=== PATIENT | female | born 1945 | race Caucasian/White ===

== ENCOUNTER 2017-12-23 07:10 | Inpatient (IN) | payer OTHER ==
[2017-12-07 09:47] VITALS: BMI 27.3
[2017-12-23] MEDS ORDERED: oxyCODONE HCL 10 MG SUSTAINED ACTING TABLET PO STA (08:14)
[2017-12-23] MEDS ORDERED: GABAPENTIN 300 MG CAPSULE (FP) PO STA (08:14)
[2017-12-23] MEDS ORDERED: CEFAZOLIN 2 GM in DEXTROSE 5%-WATER - 100 ML IVPB ONE (08:14)
[2017-12-23] MEDS ORDERED: TRANEXAMIC ACID 1000 MG/10 ML VIAL IVPUSH ONE (08:20)
[2017-12-23] MEDS ORDERED: BUPIVACAINE HCL/PF (5 MG/ML) 30 ML VIAL IJ ONE (09:34)
[2017-12-23] MEDS ORDERED: MIDAZOLAM HCL 2 MG/2 ML SINGLE DOSE VIAL ONE (09:34)
[2017-12-23] MEDS ORDERED: SODIUM CHLORIDE 0.9% P/F 10 ML VIAL IJ ONE (09:34)
[2017-12-23] MEDS ORDERED: BUPIVACAINE LIPOSOME/PF (EXPAREL) 266 MG/20 ML VIAL ONE (09:34)
[2017-12-23] MEDS ORDERED: BUPIVACAINE HCL/PF 0.5% (5MG/ML) 10 ML VIAL ONE (09:36)
[2017-12-23] MEDS ORDERED: SUCCINYLCHOLINE CHLORIDE 200 MG/10 ML VIAL ONE (09:37)
[2017-12-23] MEDS ORDERED: ePHEDrine SULFATE 50 MG/1 ML AMPULE ONE (09:37)
[2017-12-23] MEDS ORDERED: PROPOFOL 20 ML ONE ×4 (09:38)
[2017-12-23] MEDS ORDERED: ceFAZolin SODIUM 1 GM VIAL ONE ×2 (12:18→13:49)
[2017-12-23] MEDS ORDERED: TRANEXAMIC ACID 1000 MG/10 ML VIAL ONE ×2 (12:18→13:49)
[2017-12-23] MEDS ORDERED: oxyCODONE HCL 5 MG TABLET PO PRN (13:54)
[2017-12-23] MEDS ORDERED: PROMETHAZINE HCL 25 MG/1 ML VIAL IVPUSH PRN (13:54)
[2017-12-23] MEDS ORDERED: ONDANSETRON 4 MG/2 ML VIAL IVPUSH PRN (14:02)
[2017-12-23] MEDS ORDERED: MAG HYDROX/AL HYDROX/SIMETH 30 ML UNIT-DOSE CUP PO PRN (14:02)
[2017-12-23] MEDS ORDERED: MAGNESIUM HYDROX 2400MG/30ML ORAL SUSPENSION 30 ML CUP PO PRN (14:02)
[2017-12-23] MEDS ORDERED: BENZOIN/ALOE VERA/STORAX/TOLU 58 ML BOTTLE ONE (14:06)
--- NOTE | 2017-12-23 14:08 | PN ---
Progress Note (short form) - Note Progress Note: 72F s/p RIGHT total knee replacement POD #0. -Pain control: per anaesthesia team. -DVT PPx: - Mechanical: ASA EC 81mg PO BID x 6 weeks. - Mechanical: JOSHUA's, SCD's. -Incentive spirometry. -PT/OT/Rehab, OOB. -WBAT RLE. -Lucia-op antibiotics: Ancef. -f/u drain output. -f/u AM labs tomorrow. -Diet as tolerated. -Care per medical hospitalist team. -Discharge planning: f/u 7-10 days after discharge at [facility] [place] office; call for appointment; . -Will follow. Angus Perez MD (Orthopaedic Surgery).
--- NOTE | 2017-12-23 14:14 | OP ---
Operative Note - Note: Operative Date: 12/23/17 Pre-Operative Diagnosis: Right knee DJD Operation: Right total knee replacement Implants: [place] Triathlon. Femur - 3. Tibia - 3. Patella - 27mm. Poly - 9mm, PS Post-Operative Diagnosis: Same as Pre-op Surgeon: Angus Perez Roll Forger: Barrera Perez Anesthesiologist/ETL CONSULTANT: Mamadou Mahoney Anesthesia: Spinal Specimens Removed: Bone, soft tissue Drains & Tubes with Location: 1 x deep HemoVac Fluid Volume Replaced (mls): 800 Operative Report Dictated: Yes
[2017-12-23] MEDS ORDERED: LACTATED RINGERS SOLUTION 1,000 ML IV SCH (14:15)
[2017-12-23] MEDS ORDERED: HYDROmorphone HCL/PF 1 MG/ML AMP ONE (14:41)
[2017-12-23] MEDS ORDERED: ONDANSETRON 4 MG/2 ML VIAL ONE (15:25)
[2017-12-23] MEDS ORDERED: ACETAMINOPHEN 325 MG TABLET (FP) ONE (15:34)
[2017-12-23] MEDS: ACETAMINOPHEN 325 MG TABLET (FP) PO SCH ×2 (15:35→20:28)
[2017-12-23] MEDS ORDERED: oxyCODONE HCL 5 MG TABLET ONE (16:12)
[2017-12-23] MEDS: oxyCODONE HCL 5 MG TABLET PO PRN (18:29)
[2017-12-23] MEDS: CEFAZOLIN 1 GM/D5W 1 GRAM/50 ML BAG IVPB SCH (19:30)
--- NOTE | 2017-12-23 20:57 | OP ---
DATE OF OPERATION: 12/23/2017 SURGEON: Angus Perez MD PIANO TEACHER: Barrera Perez MD; LOYDA Pascal PREOPERATIVE DIAGNOSES: Fixed valgus deformity, fixed flexion deformity, tricompartment osteoarthritis, right knee. POSTOPERATIVE DIAGNOSES: Fixed valgus deformity, fixed flexion deformity, tricompartment osteoarthritis, right knee. OPERATION PERFORMED: Right posterior stabilized cemented total knee arthroplasty ([place] Triathlon). ANESTHESIA: Conscious sedation with spinal anesthesia. ANTIBIOTICS GIVEN: Kefzol 2 g, vancomycin 1 g, Kefzol 1 g given at the time of release of the tourniquet. OPERATION DETAILS: Patient correctly identified. Imaging was available for intraoperative and preoperative evaluation. Timeout was called. The right lower extremity was prepped and free draped in the routine manner with Betadine scrub solution, wiped off with alcohol, DuraPrep applied, a free drape applied. With the knee flexed, a midline incision was utilized. The dissection was taken down to the quadriceps mechanism. The quadriceps tendon was split longitudinally to just shy of 1 cm of the suprapatellar margin. An angulated incision was made around the parapatellar tissues skirting around the patella to the medial aspect of the tibial tubercle. The subperiosteal layer was lifted off the bone sharply with sharp knife dissection. Severe osteoarthritis encountered. A completely shattered lateral meniscus noted. The ricarda was on the lateral tibial side. Using the [employer] jig instrumentation, the tibia was cut to neutral, that is, 90 degrees to the shaft of the tibia. The patella was cut along [place]'s line, that is, from quadriceps tendon to patellar ligament, and the femur was cut 4 degrees of valgus and 2-mm proximalization of the joint line performed. This was because of the fixed flexion deformity. The appropriate jig system was then applied and the cuts were made in the femur to receive a size 3 Triathlon posterior stabilized implant. The tibia measured a size 3. The polyethylene was a 3 x 9 mm component and the polyethylene patellar component was a size 27 mm implant. All cuts were made. The flexion extension gaps were even at 9 mm. The limb was brought into anatomical and mechanical axis alignment and the patellar tracking was well maintained in the trialing components with no need for any lateral release, a negative thumb twst test enjoyed. The bone bed was thoroughly lavaged. After all the jig cuts were made, after repeating lavaging of the interstices, cementing was in 1 stage, femur, patella, and tibia. All extraneous cement was removed after curing of cement. The 9-mm definitive polyethylene liner inserted. The limb was placed through a range of movement as follows: Flexion, extension 0 to 120 degrees stability in the coronal plane, both at 90 degrees and at 0, as well as sagittal plane, both at 90 degrees and 0 was stable. A negative thumb test test noted. Patellar tracking was normal. Closure: Quadriceps tendon and parapatellar tendon with 1 Vicryl subcutaneous, 1 and 2-0 Vicryl; skin: 3-0 Monocryl with Steri-Strips. Drainage: A 1/8-inch Hemovac x1 ; this inadvertently got pulled out at the end of the procedure. Antibiotics to be given postoperatively with DVT prophylaxis. The patient will be nursed in the postoperative routine holding area. MD KARELY Silva/[id number] MTDD
[2017-12-23] MEDS: oxyCODONE HCL 10 MG SUSTAINED ACTING TABLET PO SCH (21:26)
[2017-12-23] MEDS: SENNOSIDES/DOCUSATE COMBO (SENNA PLUS) TABLET (UD) PO SCH (21:30)
[2017-12-23] MEDS: PREGABALIN 50 MG CAPSULE PO SCH (21:30)
[2017-12-23] MEDS: ASPIRIN 81 MG CHEWABLE TABLETS PO SCH (21:31)
[2017-12-24] MEDS: oxyCODONE HCL 5 MG TABLET PO PRN ×4 (01:09→16:09)
[2017-12-24] MEDS: ACETAMINOPHEN 325 MG TABLET (FP) PO SCH ×4 (02:06→21:19)
[2017-12-24] MEDS: CEFAZOLIN 1 GM/D5W 1 GRAM/50 ML BAG IVPB SCH (03:05)
[2017-12-24] MEDS: PREGABALIN 50 MG CAPSULE PO SCH ×3 (05:20→21:19)
--- NOTE | 2017-12-24 07:39 | CONSULT ---
Consultation: REQUESTING PROVIDER:Dr Perez CONSULT REQUEST: We have been asked to medically evaluate this patient for medical management. HISTORY OF PRESENT ILLNESS: Patient is a 72-year-old female, with a past medical history of migraine headaches, hyperlipidemia, and osteoarthritis. Patient underwent an elective right total knee replacement on December 23 2017, Dr Perez, spinal anesthesia. She reports feeling well, reports minimal pain to the right lower extremity, patient denies any paresthesias extremity. REVIEW OF SYSTEMS: CONSTITUTIONAL: Absent: fever, chills, diaphoresis, generalized weakness, malaise, loss of appetite, weight change HEENT: Absent: rhinorrhea, nasal congestion, throat pain, throat swelling, difficulty swallowing, mouth swelling, ear pain, eye pain, visual changes CARDIOVASCULAR: Absent: chest pain, syncope, palpitations, irregular heart rate, lightheadedness , peripheral edema RESPIRATORY: Absent: cough, shortness of breath, dyspnea with exertion, orthopnea, wheezing, stridor, hemoptysis GASTROINTESTINAL: Absent: abdominal pain, abdominal distension, nausea, vomiting, diarrhea, constipation, melena, hematochezia GENITOURINARY: Absent: dysuria, frequency, urgency, hesitancy, hematuria, flank pain, genital pain MUSCULOSKELETAL: Present: right knee pain Absent: myalgia, arthralgia, joint swelling, back pain, neck pain SKIN: Absent: rash, itching, pallor HEMATOLOGIC/IMMUNOLOGIC: Absent: easy bleeding, easy bruising, lymphadenopathy, frequent infections ENDOCRINE: Absent: unexplained weight gain, unexplained weight loss, heat intolerance, cold intolerance NEUROLOGIC: Absent: headache, focal weakness or paresthesias, dizziness, unsteady gait, seizure, mental status changes, bladder or bowel incontinence PSYCHIATRIC: Absent: anxiety, depression, suicidal or homicidal ideation, hallucinations. PHYSICAL EXAMINATION Vital Signs - 24 hr 12/23/17 12/23/17 12/23/17 08:08 15:00 15:05 Temperature 97.8 F 98.8 F Pulse Rate 66 78 67 Respiratory 18 16 18 Rate Blood Pressure 137/83 129/72 129/74 O2 Sat by Pulse 97 100 Oximetry (%) 12/23/17 12/23/17 12/23/17 15:10 15:15 15:20 Temperature Pulse Rate 70 67 58 L Respiratory 19 17 14 Rate Blood Pressure 131/66 141/85 145/70 O2 Sat by Pulse 100 100 100 Oximetry (%) 12/23/17 12/23/17 12/23/17 15:35 15:50 16:05 Temperature Pulse Rate 57 L 53 L 76 Respiratory 16 17 15 Rate Blood Pressure 145/65 157/67 151/92 O2 Sat by Pulse 96 96 96 Oximetry (%) 12/23/17 12/23/17 12/23/17 16:20 16:35 16:45 Temperature 98.8 F Pulse Rate 50 L 63 63 Respiratory 14 12 12 Rate Blood Pressure 141/91 150/74 150/74 O2 Sat by Pulse 98 100 Oximetry (%) 12/23/17 12/23/17 12/23/17 17:21 19:27 22:11 Temperature 98.9 F 99.1 F 99.8 F H Pulse Rate 60 69 66 Respiratory 20 20 17 Rate Blood Pressure 144/68 167/69 129/47 O2 Sat by Pulse 100 98 97 Oximetry (%) 12/24/17 06:30 Temperature 99.6 F Pulse Rate 67 Respiratory 18 Rate Blood Pressure 149/57 O2 Sat by Pulse 97 Oximetry (%) GENERAL: Awake, alert, and fully oriented, in no acute distress. HEAD: Normal with no signs of trauma. EYES: Pupils equal, round and reactive to light, extraocular movements intact, sclera anicteric, conjunctiva clear. No lid lag. EARS, NOSE, THROAT: Ears normal, nares patent, oropharynx clear without exudates. Moist mucous membranes. NECK: Normal range of motion, supple without lymphadenopathy, JVD, or masses. LUNGS: Breath sounds equal, clear to auscultation bilaterally. No wheezes, and no crackles. No accessory muscle use. HEART: Regular rate and rhythm, normal S1 and S2 without murmur, rub or gallop. ABDOMEN: Soft, nontender, not distended, normoactive bowel sounds, no guarding, no rebound, no masses. No hepatomegaly or splenomegaly. MUSCULOSKELETAL: Normal range of motion at all joints. No bony deformities or tenderness. No CVA tenderness. UPPER EXTREMITIES: 2+ pulses, warm, well-perfused. No cyanosis. No clubbing. Cap refill <2 seconds. No peripheral edema. LOWER EXTREMITIES: 2+ pulses, warm, well-perfused. No calf tenderness. No peripheral edema. rIGHT LOWER EXTREMITY: SCDs/T ED, less than 3 second capillary refill +3 radial pulse. Hemovac drain intact dressing CDI. NEUROLOGICAL: Cranial nerves II-XII intact. Normal speech. Normal gait. PSYCHIATRIC: Cooperative. Good eye contact. Appropriate mood and affect. SKIN: Warm, dry, normal turgor, no rashes or lesions noted. Active Medications Generic Name Dose Route Start Last Admin Trade Name Freq PRN Reason Stop Dose Admin Acetaminophen 650 mg 12/23/17 15:00 12/24/17 02:06 Tylenol - PO 12/26/17 14:59 650 mg Q6H BRIAN Administration Al Hydroxide/Mg Hydroxide 30 ml 12/23/17 14:02 Mylanta Oral Suspension - PO Q4H PRN DYSPEPSIA Aspirin 81 mg 12/23/17 22:00 12/23/17 21:31 Asa - PO 81 mg BID BRIAN Administration Magnesium Hydroxide 30 ml 12/23/17 14:02 Milk Of Magnesia - PO PRN PRN CONSTIPATION Ondansetron HCl 4 mg 12/23/17 14:02 12/23/17 15:23 Zofran Injection IVPUSH 4 mg Q6H PRN Administration NAUSEA Oxycodone HCl 5 mg 12/23/17 13:54 Roxicodone - PO Q3H PRN PAIN LEVEL 1-5 Oxycodone HCl 10 mg 12/23/17 13:54 12/24/17 05:21 Roxicodone - PO 10 mg Q3H PRN Administration PAIN LEVEL 6-10 Oxycodone HCl 10 mg 12/23/17 22:00 12/23/17 21:26 Oxycontin - PO 12/26/17 13:55 10 mg BID BRIAN Administration Pantoprazole Sodium 40 mg 12/24/17 10:00 Protonix - PO DAILY [facility] Pregabalin 50 mg 12/23/17 22:00 12/24/17 05:20 Lyrica - PO 50 mg TID BRIAN Administration Promethazine HCl 12.5 mg 12/23/17 13:54 Phenergan Injection - IVPUSH Q6H PRN NAUSEA-FOR RESCUE AFTER 15 MIN Senna/Docusate Sodium 2 tablet 12/23/17 22:00 12/23/17 21:30 Pericolace - PO 2 tablet BID [facility] Administration Solifenacin 5 mg 12/24/17 10:00 Vesicare - PO DAILY [facility] ASSESSMENT/PLAN: 1) MS s/p right total knee replacement, POD #1 - When necessary pain medication - Monitor hemoglobin, drain output, repeat hemoglobin this a.m. stable - Physical therapy as per the orthopedist Dispo: We will continue to follow the patient. Thank you for this consultative opportunity. Visit type - Emergency Visit Emergency Visit: No - New Patient This patient is new to me today: Yes Date on this admission: 12/24/17 - Critical Care Critical Care patient: No
--- NOTE | 2017-12-24 07:59 | PN ---
Progress Note (short form) - Note Progress Note: 72yo F s/p Rt total knee replacement POD 1, seen at bedside sitting up in chair. Pt states that she has been having a lot of pain and difficulty with getting around. Pt states that she has been taking her pain medications regularly. Pt denies fever, chills, n/v. Pt urinating well. Pt states she would like to go to rehab as she lives alone and will be difficult caring for herself. Last Vital Signs Temp Pulse Resp BP Pulse Ox 99.6 F 67 18 149/57 97 12/24/17 06:30 12/24/17 06:30 12/24/17 06:30 12/24/17 06:30 12/24/17 06:30 PE: Gen: A&O x3 Resp: breathing comfortably Ext: Right knee has charito wrap in place dressing is clean no obvious discharge or odor. Full ROM foot, no weakness or numbness. Problem List - Problems (1) S/P total knee replacement Assessment/Plan: Plan -continue pain medications -OOB/ambulate with PT -incentive spirometry -DVT ppx -social science manager for rehab placement Code(s): Z96.659 - PRESENCE OF UNSPECIFIED ARTIFICIAL KNEE JOINT
[2017-12-24 08:21] LABS: ANION GAP 9 MMOL/L (8-16); BLOOD UREA NITROGEN 8 mg/dl (7-18); CALCIUM 8.6 mg/dl (8.4-10.2); CHLORIDE 98 mmol/L (98-107); CO2 26 mmol/L (22-28); CREATININE 0.7 mg/dl (0.6-1.3); GLUCOSE,RANDOM 147 mg/dl (74-106); POTASSIUM 3.8 mmol/L (3.5-5.1); SODIUM 133 mmol/L (136-145)
[2017-12-24 08:26] LABS: HEMATOCRIT 39.4 % (32.4-45.2); HEMOGLOBIN 13.4 GM/dl (10.7-15.3); MCH 32.9 pg (25.7-33.7); MCHC 33.9 g/dl (32.0-36.0); MEAN CELL VOLUME 96.9 fl (80-96); PLATELET COUNT 230 K/MM3 (134-434); RBC 4.07 M/mm3 (3.60-5.2); RDW 13.2 % (11.6-15.6); WHITE BLOOD COUNT 12.6 K/mm3 (4.0-10.8)
--- NOTE | 2017-12-24 08:58 | PN ---
Progress Note, Physician Chief Complaint: day 1 s/p right knee arthroplasty - Current Medication List Current Medications: Active Medications Acetaminophen (Tylenol -) 650 mg PO Q6H [facility] Stop: 12/26/17 14:59 Last Admin: 12/24/17 08:54 Dose: 650 mg Al Hydroxide/Mg Hydroxide (Mylanta Oral Suspension -) 30 ml PO Q4H PRN PRN Reason: DYSPEPSIA Aspirin (Asa -) 81 mg PO BID [facility] Last Admin: 12/23/17 21:31 Dose: 81 mg Magnesium Hydroxide (Milk Of Magnesia -) 30 ml PO PRN PRN PRN Reason: CONSTIPATION Ondansetron HCl (Zofran Injection) 4 mg IVPUSH Q6H PRN PRN Reason: NAUSEA Last Admin: 12/23/17 15:23 Dose: 4 mg Oxycodone HCl (Roxicodone -) 5 mg PO Q3H PRN PRN Reason: PAIN LEVEL 1-5 Oxycodone HCl (Roxicodone -) 10 mg PO Q3H PRN PRN Reason: PAIN LEVEL 6-10 Last Admin: 12/24/17 08:55 Dose: 10 mg Oxycodone HCl (Oxycontin -) 10 mg PO BID [facility] Stop: 12/26/17 13:55 Last Admin: 12/23/17 21:26 Dose: 10 mg Pantoprazole Sodium (Protonix -) 40 mg PO DAILY [facility] Pregabalin (Lyrica -) 50 mg PO TID [facility] Last Admin: 12/24/17 05:20 Dose: 50 mg Senna/Docusate Sodium (Pericolace -) 2 tablet PO BID [facility] Last Admin: 12/23/17 21:30 Dose: 2 tablet Solifenacin (Vesicare -) 5 mg PO DAILY [facility] - Objective Vital Signs: Vital Signs Temperature 99.6 F 12/24/17 06:30 Pulse Rate 67 12/24/17 06:30 Respiratory Rate 18 12/24/17 08:20 Blood Pressure 149/57 12/24/17 06:30 O2 Sat by Pulse Oximetry (%) 97 12/24/17 08:20 Labs: CBC, BMP 12/24/17 07:15 12/24/17 07:15 Assessment/Plan had some pain when moving from bed to chair. PT to walk with pt today. No anesthetic issues/complications
[2017-12-24] MEDS ORDERED: PATIENT'S OWN MEDICATION (NON-FORMULARY) (Oxybutynin Chloride [Ditropan Xl] 10 MG) PO SCH (10:00)
[2017-12-24] MEDS: ASPIRIN 81 MG CHEWABLE TABLETS PO SCH ×2 (10:37→21:19)
[2017-12-24] MEDS: SENNOSIDES/DOCUSATE COMBO (SENNA PLUS) TABLET (UD) PO SCH ×2 (10:37→21:18)
[2017-12-24] MEDS: PANTOPRAZOLE 40 MG TABLET (FP) PO SCH (10:37)
[2017-12-24] MEDS: oxyCODONE HCL 10 MG SUSTAINED ACTING TABLET PO SCH ×2 (10:37→21:18)
[2017-12-24] MEDS: SOLIFENACIN SUCCINATE 5 MG TAB (FP) PO SCH (10:37)
[2017-12-25] MEDS: ACETAMINOPHEN 325 MG TABLET (FP) PO SCH ×2 (03:14→08:33)
[2017-12-25] MEDS: PREGABALIN 50 MG CAPSULE PO SCH (06:02)
[2017-12-25] MEDS: oxyCODONE HCL 5 MG TABLET PO PRN (06:39)
[2017-12-25 06:45] VITALS: BP 131/73; PULSE 92; TEMP 99.3
[2017-12-25 08:22] LABS: HEMATOCRIT 37.6 % (32.4-45.2); HEMOGLOBIN 12.8 GM/dl (10.7-15.3); MCH 32.9 pg (25.7-33.7); MCHC 34.1 g/dl (32.0-36.0); MEAN CELL VOLUME 96.7 fl (80-96); MEAN PLT VOLUME 8.9 fl (7.5-11.1); PLATELET COUNT 202 K/MM3 (134-434); RBC 3.89 M/mm3 (3.60-5.2); RDW 12.9 % (11.6-15.6); WHITE BLOOD COUNT 13.6 K/mm3 (4.0-10.8)
[2017-12-25] MEDS: PANTOPRAZOLE 40 MG TABLET (FP) PO SCH (10:01)
[2017-12-25] MEDS: ASPIRIN 81 MG CHEWABLE TABLETS PO SCH (10:01)
[2017-12-25] MEDS: SOLIFENACIN SUCCINATE 5 MG TAB (FP) PO SCH (10:02)
[2017-12-25] MEDS: oxyCODONE HCL 10 MG SUSTAINED ACTING TABLET PO SCH (10:02)
[2017-12-25] MEDS: SENNOSIDES/DOCUSATE COMBO (SENNA PLUS) TABLET (UD) PO SCH (10:02)
--- NOTE | 2017-12-25 10:14 | DS ---
Physical Exam: SUBJECTIVE: Patient seen and examined, reports feeling well, reports minimal pain to the right lower extremity, denies any paresthesia to the extremity, patient ambulated the hallway independently with a walker. OBJECTIVE: Patient is a 72-year-old female, with a past medical history of migraine headaches, hyperlipidemia, and osteoarthritis. Patient underwent an elective right total knee replacement on December 23, 2017, Dr Perez, spinal anesthesia. Vital Signs Temperature 99.3 F 12/25/17 06:00 Pulse Rate 92 H 12/25/17 06:00 Respiratory Rate 16 12/25/17 07:42 Blood Pressure 131/73 12/25/17 06:00 O2 Sat by Pulse Oximetry (%) 96 12/25/17 07:42 PHYSICAL EXAM GENERAL: The patient is awake, alert, and fully oriented, in no acute distress. HEAD: Normal with no signs of trauma. EYES: PERRL, extraocular movements intact, sclera anicteric, conjunctiva clear. ENT: Ears normal, nares patent, oropharynx clear without exudates, moist mucous membranes. NECK: Trachea midline, full range of motion, supple. LUNGS: Breath sounds equal, clear to auscultation bilaterally, no wheezes, no crackles, no accessory muscle use. HEART: Regular rate and rhythm, S1, S2 without murmur, rub or gallop. ABDOMEN: Soft, nontender, nondistended, normoactive bowel sounds, no guarding, no rebound, no hepatosplenomegaly, no masses. EXTREMITIES: 2+ pulses, warm, well-perfused, no edema. RIGHT LOWER EXTREMITY: scd/tamia, less than 3 second capillary refill, +3 pedal pulse, dressing cdi NEUROLOGICAL: Cranial nerves II through XII grossly intact. Normal speech, gait not observed. PSYCH: Normal mood, normal affect. SKIN: Warm, dry, normal turgor, no rashes or lesions noted. LABS CBC,CMP WBC 13.6 K/mm3 (4.0-10.8) H 12/25/17 07:30 RBC 3.89 M/mm3 (3.60-5.2) 12/25/17 07:30 Hgb 12.8 GM/dl (10.7-15.3) 12/25/17 07:30 Hct 37.6 % (32.4-45.2) 09/07/18 07:30 MCV 96.7 fl (80-96) H 12/25/17 07:30 MCH 32.9 pg (25.7-33.7) 12/25/17 07:30 MCHC 34.1 g/dl (32.0-36.0) 12/25/17 07:30 RDW 12.9 % (11.6-15.6) 12/25/17 07:30 Plt Count 202 K/MM3 (134-434) 12/25/17 07:30 MPV 8.9 fl (7.5-11.1) 12/25/17 07:30 Sodium 133 mmol/L (136-145) L 12/24/17 07:15 Potassium 3.8 mmol/L (3.5-5.1) 12/24/17 07:15 Chloride 98 mmol/L (98-107) 12/24/17 07:15 Carbon Dioxide 26 mmol/L (22-28) 12/24/17 07:15 Anion Gap 9 MMOL/L (8-16) 12/24/17 07:15 BUN 8 mg/dl (7-18) 12/24/17 07:15 Creatinine 0.7 mg/dl (0.6-1.3) 12/24/17 07:15 Creat Clearance w eGFR > 60 (>60) 12/24/17 07:15 Random Glucose 147 mg/dl (74-106) H 12/24/17 07:15 Calcium 8.6 mg/dl (8.4-10.2) 12/24/17 07:15 HOSPITAL COURSE: Patient was admitted to the medical surgical floor after an elective right Total knee replace Patient ambulated in the hallway independently with physical therapy on postoperative day 1. Pain was controlled with both narcotic and nonnarcotic analgesics. Patient repeat hgb is stable as above. Patient to be discharged for short term rehab. Date of Admission:12/23/17 Date of Discharge: 12/25/17 Minutes to complete discharge: 45
--- NOTE | 2017-12-25 12:26 | PN ---
Progress Note (short form) - Note Progress Note: POD#2 R TKR Doing well Pain well controlled CVS Stable RESP Clear ABD Soft MSKELETAL Bandage dry No NVD No calf or subsartorian tenderness ASSESS Doing well PLAN Pain MX PT mobilize DVT Prophylaxis Baby aspirin D/C rehab see in office in 3 weeks.
--- NOTE | 2018-01-01 15:18 | PATH ---
Surgical Pathology Report Patient Name: KEMAL GÓMEZ Med. Rec. #: [id number] /Age/Gender: 1945 (Age: 72) / F Account: [id number] Location: [facility] MED-SURG Taken: 12/23/2017 Received: 12/23/2017 Reported: 01/01/2018 Physicians: Angus Perez M.D. Specimen(s) Received BONE RIGHT KNEE Clinical History Right knee osteoarthritis Final Diagnosis BONE, RIGHT KNEE, TOTAL KNEE REPLACEMENT: DEGENERATIVE JOINT DISEASE. Electronically Signed Yamileth Damon M.D. Gross Description Received in formalin labeled "bone right knee," is a 9.5 x 7.5 x 2.0 cm aggregate of multiple portions of bone and soft tissue. The tibial plateau measures 6.8 x 4.8 x 1.4 cm. There is a 1.6 cm greatest dimension area of eburnation present. The remaining articular surfaces are tolentino-yellow and focally granular. The underlying trabecular bone is yellow and hard. Scruff Worker sections are submitted in one cassette, following decalcification. /12/25/2017 [facility]12/25/2017
== END 2017-12-25 13:57 | DRG 470 ==
LOC: FM/S 07:10
PROVIDERS: ADMIT Orthopaedic Surgery Orthopaedic Surgery of the Spine; ATTEND Orthopaedic Surgery Orthopaedic Surgery of the Spine
PROC: 0SRC0J9 Replacement of Right Knee Joint with Synthetic Substitute, Cemented, Open Approach (ICD-10-PCS; principal; 2017-12-23 13:00)
DX: M17.11 Unilateral primary osteoarthritis, right knee (principal); E78.5 Hyperlipidemia, unspecified; G43.909 Migraine, unspecified, not intractable, without status migrainosus
CPT/HCPCS: 36415; 73560-TC-RT-FY; 80048; 85027; 88304-TC; 88311-TC; 94760; 97116-GP; 97162-GP

== ENCOUNTER 2019-02-02 05:54 | Inpatient (IN) | payer OTHER ==
[2019-01-17 11:54] VITALS: BMI 32.6
[2019-02-02] MEDS ORDERED: VANCOMYCIN 1,250 MG in DEXTROSE 5%-WATER - 250 ML IVPB ONE (06:43)
[2019-02-02] MEDS ORDERED: TRANEXAMIC ACID 1000 MG/10 ML VIAL IVPUSH ONE (06:43)
[2019-02-02] MEDS ORDERED: CEFAZOLIN 2 GM in DEXTROSE 5%-WATER - 50 ML IVPB ONE (06:43)
[2019-02-02] MEDS ORDERED: MIDAZOLAM HCL 2 MG/2 ML SINGLE DOSE VIAL ONE ×3 (07:06→10:02)
--- NOTE | 2019-02-02 07:23 | HP ---
History & Physical Update - History History: No Change - Physical Physical: No Change - Assessment Assessment: No Change - Plan Plan: No Change (no change since visit with PCP on 01/17/19)
[2019-02-02] MEDS ORDERED: VANCOMYCIN 1,000 MG VIAL (RESTRICTED TO ID ONLY) ONE (07:42)
[2019-02-02] MEDS ORDERED: SUCCINYLCHOLINE CHLORIDE 200 MG/10 ML SYRINGE ONE (07:47)
[2019-02-02] MEDS ORDERED: PROPOFOL 20 ML ONE ×2 (07:48)
[2019-02-02] MEDS ORDERED: BUPIVACAINE HCL/PF 0.5% (5MG/ML) 10 ML VIAL ONE (07:51)
[2019-02-02] MEDS ORDERED: BENZOIN TINCTURE SWABSTICK TP ONE (07:57)
[2019-02-02] MEDS ORDERED: EPHEDRINE SULFATE/0.9% NACL/PF 50 MG/10 ML SYRINGE NR ONE (08:32)
[2019-02-02] MEDS ORDERED: DEXAMETHASONE SOD PHOSPHATE 4 MG/1 ML VIAL ONE (08:38)
[2019-02-02] MEDS ORDERED: ONDANSETRON 4 MG/2 ML VIAL ONE ×2 (08:39→11:43)
[2019-02-02] MEDS ORDERED: ceFAZolin SODIUM 1 GM VIAL ONE (10:28)
[2019-02-02] MEDS ORDERED: TRANEXAMIC ACID 1000 MG/10 ML VIAL ONE (10:38)
[2019-02-02] MEDS ORDERED: MAG HYDROX/AL HYDROX/SIMETH 30 ML UNIT-DOSE CUP PO PRN (10:56)
[2019-02-02] MEDS ORDERED: MAGNESIUM HYDROX 2400MG/30ML ORAL SUSPENSION 30 ML CUP PO PRN (10:56)
[2019-02-02] MEDS ORDERED: ONDANSETRON 4 MG/2 ML VIAL IVPUSH PRN (10:56)
[2019-02-02] MEDS ORDERED: LACTATED RINGERS SOLUTION 1,000 ML IV SCH (11:00)
[2019-02-02] MEDS ORDERED: ACETAMINOPHEN 325 MG TABLET (FP) PO SCH (11:15)
--- NOTE | 2019-02-02 11:49 | PN ---
Progress Note (short form) - Note Progress Note: 73F s/p RIGHT total hip replacement POD #0. -Pain control: per anaesthesia team. -DVT PPx: -Chemical: ASA 81mg PO BID x 6 weeks. -Mechanical: JOSHUA's, SCD's. -Incentive spirometry q15 min. -PT/OT/Rehab, OOB. -WBAT RLE. -Post-op Ancef x 3 doses. -f/u post-op TOV: 8 hours max. -f/u AM labs. -Diet as tolerated. -Care per medical hospitalist team. -Discharge planning: f/u [facility] [place] [facility] 02/10/2019; call for appointment . -Will follow. Barrera Perez MD (Orthopaedic Surgery).
--- NOTE | 2019-02-02 11:51 | OP ---
Operative Note - Note: Operative Date: 02/02/19 Pre-Operative Diagnosis: Right hip DJD Operation: Right JANA Implants: [place]. Cup - [place]ident II-Triathlon 50mm, cluster. Poly - 36mm, neutral. Stem - Accolade II, #3, 127 deg NSA. Head - 36mm diameter, -2.5mm length Biolox/Delta Ceramic Post-Operative Diagnosis: Same as Pre-op Surgeon: Barrera Perez Baked And Graphite Inspector: Angus Perez Anesthesiologist/SENIOR MARKETING ANALYST: Justyn Chen Anesthesia: Spinal Specimens Removed: Right femoral head Estimated Blood Loss (mls): 250 Fluid Volume Replaced (mls): 1,800 (Crystalloid) Operative Report Dictated: Yes
[2019-02-02] MEDS ORDERED: CEFAZOLIN 1 GM/D5W 1 GM/50 ML BAG IVPB SCH ×2 (12:00→17:30)
[2019-02-02] MEDS ORDERED: oxyCODONE HCL 5 MG TABLET ONE ×2 (12:05→12:43)
[2019-02-02] MEDS ORDERED: PREGABALIN 50 MG CAPSULE ONE (12:06)
[2019-02-02] MEDS: PREGABALIN 50 MG CAPSULE PO SCH ×2 (12:50→22:44)
--- NOTE | 2019-02-02 14:15 | HP ---
CHIEF COMPLAINT: Right hip pain HISTORY OF PRESENT ILLNESS: 73 year-old female with a PMH significant for HLD, migraines, overactive bladder , and osteoarthritis s/p right total hip arthroplasty today with Dr. Perez. Recent Travel: No PAST MEDICAL HISTORY: Hyperlipidemia Osteoarthritis Migraines Overactive bladder PAST SURGICAL HISTORY: Right total knee replacement (Chris, 12/23/17) Left knee replacement 2016 Bilateral cataracts Appendectomy (child) Left rotator cuff repair Social History: Smoking: former, quit 1987 Alcohol: occasional Drugs: no Allergies No Known Allergies Allergy (Verified 01/17/19 11:46) HOME MEDICATIONS: Home Medications Medication Instructions Recorded Meloxicam 15 mg PO HS 12/07/17 Oxybutynin Chloride [Ditropan Xl] 10 mg PO DAILY 12/07/17 Pregabalin [Lyrica -] 50 mg PO TID 12/07/17 Simvastatin 20 mg PO HS 12/07/17 Acetaminophen [Tylenol .Regular 650 mg PO Q6H tablet 12/25/17 Strength -] oxyCODONE HCL [Roxicodone -] 10 mg PO Q6H PRN #28 tablet MDD 4 12/25/17 REVIEW OF SYSTEMS CONSTITUTIONAL: Absent: fever, chills, diaphoresis, generalized weakness, malaise, loss of appetite, weight change HEENT: Absent: rhinorrhea, nasal congestion, throat pain, throat swelling, difficulty swallowing, mouth swelling, ear pain, eye pain, visual changes CARDIOVASCULAR: Absent: chest pain, syncope, palpitations, irregular heart rate, lightheadedness , peripheral edema RESPIRATORY: Absent: cough, shortness of breath, dyspnea with exertion, orthopnea, wheezing, stridor, hemoptysis GASTROINTESTINAL: Absent: abdominal pain, abdominal distension, nausea, vomiting, diarrhea, constipation, melena, hematochezia GENITOURINARY: Absent: dysuria, frequency, urgency, hesitancy, hematuria, flank pain, genital pain MUSCULOSKELETAL: Absent: myalgia, arthralgia, joint swelling, back pain, neck pain SKIN: Absent: rash, itching, pallor HEMATOLOGIC/IMMUNOLOGIC: Absent: easy bleeding, easy bruising, lymphadenopathy, frequent infections ENDOCRINE: Absent: unexplained weight gain, unexplained weight loss, heat intolerance, cold intolerance NEUROLOGIC: Absent: headache, focal weakness or paresthesias, dizziness, unsteady gait, seizure, mental status changes, bladder or bowel incontinence PSYCHIATRIC: Absent: anxiety, depression, suicidal or homicidal ideation, hallucinations. PHYSICAL EXAMINATION Vital Signs - 24 hr 02/02/19 02/02/19 02/02/19 06:48 11:32 11:40 Temperature 98.5 F 97.5 F L Pulse Rate 56 L 72 68 Respiratory 18 16 18 Rate Blood Pressure 117/68 116/97 109/71 O2 Sat by Pulse 100 99 Oximetry (%) 02/02/19 02/02/19 02/02/19 11:45 11:50 12:05 Temperature 97.5 F L Pulse Rate 99 H 99 H 86 Respiratory 18 18 20 Rate Blood Pressure 106/79 106/79 115/68 O2 Sat by Pulse 98 98 98 Oximetry (%) 02/02/19 02/02/19 02/02/19 12:20 12:35 12:50 Temperature Pulse Rate 66 69 68 Respiratory 20 18 18 Rate Blood Pressure 128/46 L 106/64 108/64 O2 Sat by Pulse 96 96 96 Oximetry (%) GENERAL: Awake, alert, and fully oriented, in no acute distress. HEAD: Normal with no signs of trauma. EYES: Pupils equal, round and reactive to light, extraocular movements intact, sclera anicteric, conjunctiva clear. No lid lag. EARS, NOSE, THROAT: Ears normal, nares patent, oropharynx clear without exudates. Moist mucous membranes. NECK: Normal range of motion, supple without lymphadenopathy, JVD, or masses. LUNGS: Breath sounds equal, clear to auscultation bilaterally. No wheezes, and no crackles. No accessory muscle use. HEART: Regular rate and rhythm, normal S1 and S2 without murmur, rub or gallop. ABDOMEN: Soft, nontender, not distended, normoactive bowel sounds, no guarding, no rebound, no masses. No hepatomegaly or splenomegaly. MUSCULOSKELETAL: Normal range of motion at all joints. No bony deformities or tenderness. No CVA tenderness. UPPER EXTREMITIES: 2+ pulses, warm, well-perfused. No cyanosis. No clubbing. No peripheral edema. LOWER EXTREMITIES: 2+ pulses, warm, well-perfused. No calf tenderness. No peripheral edema. NEUROLOGICAL: Cranial nerves II-XII intact. Normal speech. Normal gait. PSYCHIATRIC: Cooperative. Good eye contact. Appropriate mood and affect. SKIN: Warm, dry, normal turgor, no rashes or lesions noted, normal capillary refill. Pre op Hgb 14.8 BUN 13 Cr 0.8 Intra op EBL 250cc Crystalloids 1,800 ccs Cefazolin 2g x 1, and 1g x 1 ASSESSMENT/PLAN: 73 year-old female with a PMH significant for HLD, migraines, overactive bladder , and osteoarthritis s/p right total hip arthroplasty today with Dr. Perez. Right total hip arthroplasty --POD #0 --perioperative antibiotics per surgery --pain management per surgery --ASA 81mg BID --protonix --bowel regimen --incentive spirometry Hyperlipidemia --continue statin Migraines --continue Lyrica Overactive bladder --continue Vesicare FEN Fluids: PO intake adequate Electrolytes: replete as indicated Nutrition: regular diet DVT prophylaxis: OOB, ambulation, SCDs, TEDs, ASA 81mg BID Physical therapy Dispo: continues to require inpatient care. Full code. Visit type - Emergency Visit Emergency Visit: No - New Patient This patient is new to me today: Yes Date on this admission: 02/03/19 - Critical Care Critical Care patient: No
[2019-02-02] MEDS ORDERED: oxyCODONE HCL 5 MG TABLET PO PRN (14:38)
[2019-02-02] MEDS: FERROUS SO4 325 MG TABLET (FP) PO SCH (17:20)
[2019-02-02] MEDS: CEFAZOLIN 1 GM/D5W 1 GM/50 ML BAG IVPB SCH ×2 (17:29→23:00)
[2019-02-02] MEDS: ACETAMINOPHEN 325 MG TABLET (FP) PO SCH (18:29)
[2019-02-02] MEDS ORDERED: VANCOMYCIN 1 GRAM (PRE-DOCKED) 1,000 MG/250 ML BAG IVPB ONE (20:30)
[2019-02-02] MEDS ORDERED: PATIENT'S OWN MEDICATION (NON-FORMULARY) (Simvastatin [Simvastatin] 20 MG) PO SCH (22:00)
[2019-02-02] MEDS: oxyCODONE HCL 5 MG TABLET PO PRN (22:01)
[2019-02-02] MEDS: ATORVASTATIN CA 10 MG TABLET (FP) PO SCH (22:44)
[2019-02-02] MEDS: SENNOSIDES/DOCUSATE COMBO (SENNA PLUS) TABLET (UD) PO SCH (22:44)
[2019-02-02] MEDS: ASPIRIN COATED 81 MG TABLET.EC PO SCH (22:44)
[2019-02-02] MEDS: ASCORBIC ACID 500 MG TABLET (FP) PO SCH (22:51)
[2019-02-03] MEDS: traMADol HCL 50 MG TABLET PO PRN ×3 (03:45→09:20)
--- NOTE | 2019-02-03 04:19 | PN ---
Physical Exam: SUBJECTIVE: Patient seen and examined oob to chair. OBJECTIVE: Vital Signs Period Temp Pulse Resp BP Sys/Solis Pulse Ox Last 24 Hr 97.5 F-99.9 F 56-105 16-20 101-128/46-97 94-100 GENERAL: Awake, alert, and fully oriented, in no acute distress. LUNGS: Breath sounds equal, clear to auscultation bilaterally. No wheezes, and no crackles. No accessory muscle use. HEART: Regular rate and rhythm, normal S1 and S2 ABDOMEN: Soft, nontender, not distended, normoactive bowel sounds, no guarding, no rebound, no masses. No hepatomegaly or splenomegaly. MUSCULOSKELETAL: Normal range of motion at all joints. No bony deformities or tenderness. No CVA tenderness. RIGHT LOWER EXTREMITY: right hip dressing c/d/i NEUROLOGICAL: Cranial nerves II-XII intact. Normal speech. Active Medications Generic Name Dose Route Start Last Admin Trade Name Freq PRN Reason Stop Dose Admin Acetaminophen 650 mg 02/02/19 18:00 02/02/19 18:29 Tylenol - PO 02/05/19 17:59 650 mg Q6H BRIAN Administration Al Hydroxide/Mg Hydroxide 30 ml 02/02/19 10:56 Mylanta Oral Suspension - PO Q4H PRN DYSPEPSIA Ascorbic Acid 500 mg 02/02/19 22:00 Vitamin C - PO BID BRIAN Aspirin 81 mg 02/02/19 22:00 Ecotrin - PO BID BRIAN Atorvastatin Calcium 10 mg 02/02/19 22:00 Lipitor - PO HS BRIAN Fentanyl 50 mcg 02/02/19 14:38 Sublimaze Injection - IVPUSH [id number] PRN PAIN-PACU ORDER X 4 DOSES ONLY Ferrous Sulfate 325 mg 02/02/19 17:30 02/02/19 17:20 Feosol - PO 325 mg BIDWM BRIAN Administration Lactated Ringer's 1,000 mls @ 100 mls/hr 02/02/19 11:00 Lactated Ringers Solution IV 02/03/19 06:00 ASDIR BRIAN Cefazolin Sodium 1 gm in 50 mls @ 100 mls/hr 02/02/19 17:00 02/02/19 23:00 Ancef 1 Gm Premixed Ivpb - IVPB 02/03/19 05:29 100 mls/hr Q6H BRIAN Administration Magnesium Hydroxide 30 ml 02/02/19 10:56 Milk Of Magnesia - PO PRN PRN CONSTIPATION Multivitamins/Minerals/Vitamin C 1 tab 02/03/19 10:00 Tab-A-Vit - PO DAILY [facility] Ondansetron HCl 4 mg 02/02/19 10:56 Zofran Injection IVPUSH Q6H PRN NAUSEA Oxycodone HCl 5 mg 02/02/19 14:38 Roxicodone - PO Q3H PRN PAIN LEVEL 4 - 6 Oxycodone HCl 10 mg 02/02/19 14:38 02/02/19 22:01 Roxicodone - PO 10 mg Q3H PRN Administration PAIN LEVEL 7 - 10 Pantoprazole Sodium 40 mg 02/03/19 10:00 Protonix - PO DAILY BRIAN Pregabalin 50 mg 02/02/19 14:00 02/02/19 12:50 Lyrica - PO 50 mg TID BRIAN Administration Senna/Docusate Sodium 2 tablet 02/02/19 22:00 Pericolace - PO BID BRIAN Solifenacin 5 mg 02/03/19 10:00 Vesicare - PO DAILY BRIAN Tramadol HCl 50 mg 02/02/19 14:38 Ultram - PO Q3H PRN PAIN LEVEL 1 - 3 ASSESSMENT/PLAN: 73 year-old female with a PMH significant for HLD, migraines, overactive bladder , and osteoarthritis s/p right total hip arthroplasty today with Dr. Perez. Right total hip arthroplasty --POD #1 --perioperative antibiotics per surgery --pain management per surgery --ASA 81mg BID --protonix --bowel regimen --incentive spirometry Hyperlipidemia --continue statin Migraines --continue Lyrica Overactive bladder --continue Vesicare FEN Fluids: PO intake adequate Electrolytes: replete as indicated Nutrition: regular diet DVT prophylaxis: OOB, ambulation, SCDs, TEDs, ASA 81mg BID Physical therapy Dispo: continues to require inpatient care. Full code. Visit type - Emergency Visit Emergency Visit: No - New Patient This patient is new to me today: No - Critical Care Critical Care patient: No
[2019-02-03] MEDS: oxyCODONE HCL 5 MG TABLET PO PRN ×4 (04:43→21:43)
[2019-02-03] MEDS: CEFAZOLIN 1 GM/D5W 1 GM/50 ML BAG IVPB SCH (04:51)
[2019-02-03] MEDS: PREGABALIN 50 MG CAPSULE PO SCH ×3 (05:56→21:43)
[2019-02-03] MEDS: ACETAMINOPHEN 325 MG TABLET (FP) PO SCH ×3 (06:00→12:00)
[2019-02-03 07:14] LABS: HEMATOCRIT 32.7 % (32.4-45.2); HEMOGLOBIN 11.3 GM/dl (10.7-15.3); MCH 33.1 pg (25.7-33.7); MCHC 34.5 g/dl (32.0-36.0); MEAN PLT VOLUME 8.2 fl (7.5-11.1); PLATELET COUNT 187 K/MM3 (134-434); RBC 3.41 M/mm3 (3.60-5.2); RDW 12.7 % (11.6-15.6); WHITE BLOOD COUNT 11.5 K/mm3 (4.0-10.8)
[2019-02-03 07:29] LABS: CALCIUM 8.2 mg/dl (8.5-10); CREATININE 0.7 mg/dl (0.55-1.3); MAGNESIUM 1.7 mg/dL (1.8-2.4); POTASSIUM 3.7 mmol/L (3.5-5.1)
[2019-02-03] MEDS ORDERED: MAGNESIUM OXIDE 400 MG TABLET (FP) PO ONE (07:41)
--- NOTE | 2019-02-03 07:47 | PN ---
Progress Note (short form) - Note Progress Note: POD #1 s/p R JANA Alert. C/o a lot of incisional pain --> right buttock radiating into her groin. States the buttock pain is new and the groin is chronic however feels the pain has increased s/p surgery. Difficulty sleeping last night secondary to pain. OOB to chair with assist. Voiding spontaneously. Denies n/v/f/c, CP, palpitations, SOB or FIGUEROA. Last Vital Signs Temp Pulse Resp BP Pulse Ox 99.8 F H 99 H 20 119/57 L 94 L 02/03/19 06:00 02/03/19 06:00 02/03/19 06:00 02/03/19 06:00 02/03/19 06:00 CBC, BMP 02/03/19 07:08 02/03/19 07:08 GEN: nad LE: Rt hip dressing c/d/i. SCDs bilat Neuro: GMNVI bilat Problem List - Problems (1) Status post total hip replacement, right Assessment/Plan: Pain most likely associated with sciatic nerve irritation. -Anasthesia to address pain management issues -Breakdown Person Consulted for possible REHAB pending PT eval - Pain control. -DVT PPx: -Chemical: ASA 81 mg po BID x 6 weeks -Mechanical: JOSHUA's, SCD's -Incentive Spirometry. -PT/OT/Rehab, OOB. -WBAT RLE. -Care per medical hospitalist team. -Discharge planning: f/u [facility] [place] office school bus monitor for appointment: Code(s): Z96.641 - PRESENCE OF RIGHT ARTIFICIAL HIP JOINT (2) Osteoarthritis of right hip Code(s): M16.11 - UNILATERAL PRIMARY OSTEOARTHRITIS, RIGHT HIP
[2019-02-03] MEDS: FERROUS SO4 325 MG TABLET (FP) PO SCH (08:05)
[2019-02-03] MEDS ORDERED: KETOROLAC TROMETHAMINE 15 MG/ML VIAL IVPUSH PRN (08:31)
[2019-02-03] MEDS: ASPIRIN COATED 81 MG TABLET.EC PO SCH ×2 (09:16→21:42)
[2019-02-03] MEDS: PANTOPRAZOLE 40 MG TABLET (FP) PO SCH (09:19)
[2019-02-03] MEDS: SENNOSIDES/DOCUSATE COMBO (SENNA PLUS) TABLET (UD) PO SCH ×2 (09:19→21:43)
[2019-02-03] MEDS: SOLIFENACIN SUCCINATE 5 MG TAB PO SCH (09:20)
[2019-02-03] MEDS: ASCORBIC ACID 500 MG TABLET (FP) PO SCH ×2 (09:20→21:43)
[2019-02-03] MEDS: MULTIVITAMINS (DAILY MVI) TABLET (FP) PO SCH (09:20)
[2019-02-03] MEDS ORDERED: PATIENT'S OWN MEDICATION (NON-FORMULARY) (Oxybutynin Chloride [Ditropan Xl] 10 MG) PO SCH (10:00)
--- NOTE | 2019-02-03 11:06 | PN ---
Progress Note (short form) - Note Progress Note: POD 1 s/p R hip arthroplasty under spinal and paravertebral block. Patient c/o incisional pain, tolerable with addition of Toradol IV in additional to oxycodone prn. Patient actively participating in physical therapy. Reassurance given and patient encouraged to ask for both toradol and oxycodone po.
[2019-02-03] MEDS: ATORVASTATIN CA 10 MG TABLET (FP) PO SCH (21:43)
[2019-02-03] MEDS ORDERED: ASPIRIN 325 MG TABLET PO SCH (22:00)
[2019-02-04] MEDS: ACETAMINOPHEN 325 MG TABLET (FP) PO SCH ×2 (06:39)
[2019-02-04] MEDS: PREGABALIN 50 MG CAPSULE PO SCH (06:41)
[2019-02-04] MEDS: traMADol HCL 50 MG TABLET PO PRN (06:41)
[2019-02-04 07:47] LABS: HEMOGLOBIN 10.5 GM/dl (10.7-15.3); MCH 32.5 pg (25.7-33.7); MCHC 33.8 g/dl (32.0-36.0); MEAN CELL VOLUME 96.3 fl (80-96); MEAN PLT VOLUME 8.5 fl (7.5-11.1); PLATELET COUNT 168 K/MM3 (134-434); RBC 3.22 M/mm3 (3.60-5.2); RDW 12.9 % (11.6-15.6); WHITE BLOOD COUNT 11.8 K/mm3 (4.0-10.8)
[2019-02-04] MEDS: FERROUS SO4 325 MG TABLET (FP) PO SCH (08:08)
[2019-02-04] MEDS: MULTIVITAMINS (DAILY MVI) TABLET (FP) PO SCH (08:59)
[2019-02-04] MEDS: SENNOSIDES/DOCUSATE COMBO (SENNA PLUS) TABLET (UD) PO SCH (08:59)
[2019-02-04] MEDS: SOLIFENACIN SUCCINATE 5 MG TAB PO SCH (08:59)
[2019-02-04] MEDS: ASCORBIC ACID 500 MG TABLET (FP) PO SCH (08:59)
[2019-02-04] MEDS: ASPIRIN COATED 81 MG TABLET.EC PO SCH (08:59)
[2019-02-04] MEDS: PANTOPRAZOLE 40 MG TABLET (FP) PO SCH (09:05)
--- NOTE | 2019-02-04 09:05 | PN ---
Progress Note (short form) - Note Progress Note: POD 2, s/p R THR Pt seen and examined. Reports she is doing "okay". Continues to have some pain with ambulation/excessive movement of the leg. Was oob with PT yesterday without issue. Tolerating Po, voiding without issue. Denies cp/sob, n/v/d. Vital Signs Temp 99.9 F H 02/04/19 06:00 Pulse 100 H 02/04/19 06:00 Resp 18 02/04/19 08:38 BP 116/87 02/04/19 06:00 Pulse Ox 96 02/04/19 08:38 Intake & Output 02/03/19 02/03/19 02/04/19 11:59 23:59 11:59 Intake Total 400 Balance 400 Intake: Oral 400 Other: Voiding Method Bedpan Toilet Toilet # Unmeasured Voids Void 1 1 CBC, BMP 02/04/19 07:35 02/03/19 07:08 Gen: awake, alert, nad. Sitting in chair Resp: unlabored on RA LE: RLE with hip dressing c/d/i, ice packs in place, B/L LE's 5/5 dorsi/ plantarflexion, 5/5 ehl/fhl, silt b/l les, mild edemaecchymosis noted, compartments soft. SCDS in place and on A/P: 73 y/o F w/ PMhx HLD, migraines, overactive bladder, and osteoarthritis admitted for elective R THR, now POD 2, s/p right total hip arthroplasty. afebrile, mildly tachy likely due to pain, BP noted to be systolic low 100s overnight, improved this AM Labs stable -D/C instructions including pain regimen plan discussed at length with pt. Pt verbalized understanding -Requesting d/c today -All scripts sent d/w attendings dr Bautista
--- NOTE | 2019-02-04 11:23 | DS ---
"Physical Exam: SUBJECTIVE: Patient seen and examined oob to chair. OBJECTIVE: Vital Signs Period Temp Pulse Resp BP Sys/Solis Pulse Ox Last 24 Hr 97.8 F-99.9 F 67-100 16-19 102-125/54-87 94-100 PHYSICAL EXAM GENERAL: Awake, alert, and fully oriented, in no acute distress. LUNGS: Breath sounds equal, clear to auscultation bilaterally. No wheezes, and no crackles. No accessory muscle use. HEART: Regular rate and rhythm, normal S1 and S2 ABDOMEN: Soft, nontender, not distended, normoactive bowel sounds, no guarding, no rebound, no masses. No hepatomegaly or splenomegaly. MUSCULOSKELETAL: Normal range of motion at all joints. No bony deformities or tenderness. No CVA tenderness. RIGHT LOWER EXTREMITY: right hip dressing c/d/i NEUROLOGICAL: Cranial nerves II-XII intact. Normal speech. LABS CBCD WBC 11.8 K/mm3 (4.0-10.8) H 02/04/19 07:35 RBC 3.22 M/mm3 (3.60-5.2) L 02/04/19 07:35 Hgb 10.5 GM/dl (10.7-15.3) L 02/04/19 07:35 Hct 31.0 % (32.4-45.2) L 02/04/19 07:35 MCV 96.3 fl (80-96) H 02/04/19 07:35 MCHC 33.8 g/dl (32.0-36.0) 02/04/19 07:35 RDW 12.9 % (11.6-15.6) 02/04/19 07:35 Plt Count 168 K/MM3 (134-434) 02/04/19 07:35 MPV 8.5 fl (7.5-11.1) 02/04/19 07:35 CMP Sodium 136 mmol/L (136-145) 02/03/19 07:08 Potassium 3.7 mmol/L (3.5-5.1) 02/03/19 07:08 Chloride 100 mmol/L (98-107) 02/03/19 07:08 Carbon Dioxide 28 mmol/L (21-32) 02/03/19 07:08 Anion Gap 8 MMOL/L (8-16) 10/17/19 07:08 BUN 10.0 mg/dl (7-18) 02/03/19 07:08 Creatinine 0.7 mg/dl (0.55-1.3) 02/03/19 07:08 Calcium 8.2 mg/dl (8.5-10) L 02/03/19 07:08 HOSPITAL COURSE: Date of Admission:02/02/19 Date of Discharge: 02/04/19 73 year-old female with a PMH significant for HLD, migraines, overactive bladder , and osteoarthritis s/p right total hip arthroplasty today with Dr. Perez. Right total hip arthroplasty --POD #2 --perioperative antibiotics complete --ASA 81mg BID x 6 weeks Hyperlipidemia --continued statin Migraines --continued Lyrica Overactive bladder --continued Vesicare Minutes to complete discharge: 35 Discharge Summary Problems reviewed: Yes Reason For Visit: RIGHT HIP OSTEOARTHRITIS Current Active Problems Osteoarthritis of right hip (Acute) Status post total hip replacement, right (Acute) Condition: Improved - Instructions Diet, Activity, Other Instructions: Dr. Perez Discharge Instructions for Hip Replacement Post Operative Instructions Physical activity Physical Therapist will come to your home for the first 5 days. You will be set up with outpatient PT at your first post-operative visit. Use assistive devices for ambulation at all times. Weight bearing as tolerated on your surgical side. Wound care Leave your surgical dressing in place. Do not change the dressing until seen by your surgeon in the office. No baths or showers. Do not submerge your incision. Do not apply any ointments or lotions to your incision. Please call the office if your dressing is soiled/dirty or is falling off. Apply Graduated Compression Stockings (TEDS) to both lower extremities-remove daily for hygiene ONLY. Diet There are no dietary restrictions. Eat healthy, high-fiber foods. Drink 6 to 8 glasses of liquid each day. This will assist in keeping your bowels are regular. We recommend taking an over the counter stool softener daily if you are utilizing the narcotic pain medications as this can lead to constipation. If you become constipated you may use Miralax which can be purchased over the counter (please follow the reinforcing steel erector's dosage instructions). Pain management You may take (Tylenol) Acetaminophen 1000mg every 6 hours. Do not exceed more than 4g (4000mg) in 24 hours as this can lead to liver damage/failure. If you are taking 4g of Tylenol per day (the above regimen), do not continue this regimen for more then 10 days. You may take Ibuprofen as needed, please follow the reinforcing steel erector's dosage instructions. Do not exceed the dosage recommended by the reinforcing steel erector as this can lead to kidney damage/failure. We recommend keeping track of the dosage and time you take each medication to ensure you do not exceed the reinforcing steel erector's recommended daily dosage. Take Ibuprofen with food, Acetaminophen may be taken on an empty stomach. Any pain prescription medication ordered should be taken as prescribed for moderate to severe pain. If the pain regimen described above is not controlling your pain, please contact the office. Do not drive, drink alcohol or operate heavy machinery while taking narcotic pain medications. Do not mix narcotic pain medications with sedatives/benzodiazepines or sleeping aids unless discussed with your doctor. Posterior Hip Precautions: Do not cross the leg you had surgery on over your other leg. (Do not cross your legs.)Use an elevated toilet seat. Do not sit on low chairs or beds. Use purple pillow (abductor) when lying in bed. Take Aspirin 81 mg two times a day for a total of 6 weeks to prevent blood clots. Call Dr. ePrez for any of the following: Severe pain not relieved by medication Fever of 101 or higher Excessive bleeding or drainage on dressing Inability to urinate If you experience chest pain or shortness of breath, please seek emergency care immediately. Please call the office at to confirm your post-op appointment for the week following surgery. This report was requested by: Yaquelin Parks | Reference #: [id number] Others' Prescriptions Patient Name: Renae Dupree Date: 1945 Address: [address] [place] [address] Sex: Female Rx Written Rx Dispensed Drug Quantity Days Supply Prescriber Name 11/01/2018 11/10/2018 oxycodone-acetaminophen 5-325 mg tablet 92 23 Susi Garber (RPA-C) 08/23/2018 08/27/2018 oxycodone-acetaminophen 5-325 mg tablet 92 23 Angus Perez MS, MD 08/12/2018 08/17/2018 oxycodone-acetaminophen 5-325 mg tablet 28 7 Angus Perez MS, MD 04/15/2018 04/23/2018 oxycodone-acetaminophen 10-325 mg tablet 90 30 Angus Perez MS, MD Referrals: Barrera Perez MD [Staff Physician] - Disposition: HOME - Home Medications Comprehensive Discharge Medication List: Ambulatory Orders Meloxicam 15 mg PO HS 12/07/17 Oxybutynin Chloride [Ditropan Xl] 10 mg PO DAILY 12/07/17 Pregabalin [Lyrica -] 50 mg PO TID 12/07/17 Simvastatin 20 mg PO HS 12/07/17 Acetaminophen 1,000 mg PO Q6H #28 tablet 02/04/19 Aspirin Coated [Ecotrin -] 81 mg PO BID 42 Days #84 tablet.ec 02/04/19 Docusate Sodium [Colace] 100 mg PO BID #20 capsule 02/04/19 oxyCODONE HCL [Roxicodone -] 5 mg PO Q4H PRN 7 Days #35 tablet MDD 5 02/04/19 This patient is new to me today: No Emergency Visit: No Critical Care patient: No - Discharge Referral Referred to [facility] No"
--- NOTE | 2019-02-04 13:23 | PATH ---
Surgical Pathology Report Patient Name: KEMAL GÓMEZ Med. Rec. #: [id number] /Age/Gender: 1945 (Age: 73) / F Account: [id number] Location: [facility] Taken: 02/02/2019 Received: 02/02/2019 Reported: 02/04/2019 Physicians: Barrera Perez M.D. Specimen(s) Received RIGHT FEMORAL HEAD Clinical History Right hip osteoarthritis Final Diagnosis RIGHT FEMORAL HEAD, RESECTION: DEGENERATIVE JOINT DISEASE, RIGHT HIP. Electronically Signed David Rabago M.D. Gross Description Received in formalin, labeled "right femoral head," is a 4.0 x 4.0 x 3.8 cm. femoral head with a 1.0 cm in length portion of femoral neck attached. The margin of resection is smooth. There is a 1.0 cm in greatest dimension area of eburnation present. The remaining articular surface is tolentino-yellow and focally granular. The underlying trabecular bone is yellow and hard. A civil rights representative section is submitted in one cassette, following decalcification. /02/03/2019 [facility]02/03/2019
[2019-02-04 14:07] VITALS: BP 100/57; PULSE 93; TEMP 98.7
--- NOTE | 2019-02-07 15:59 | OP ---
Date of Operation: 02/02/2019 Surgeon: Barrera Perez M.D. Adoption Coordinator: Angus Perez M.D., Justin Das P.A.-C. Pre-Operative Diagnosis: Primary osteoarthritis right hip. Post-Operative Diagnosis: Primary osteoarthritis right hip. Surgical Procedure: Right total hip replacement via Direct Suprior approach ( [id number]). Anaesthesia: Spinal, block. Position: Left lateral decubitus. Incision: Direct superior. Estimated Blood Loss: 250cc. Intravenous Fluid: 1.8L crystalloid. Specimens: Right femoral head. Drains: None. Complications: None. Urine output: None. Bacteriology: None. Transfusions: None. Closure: #1 Vicryl, 2-0 Biosyn. Indications: The patient was indicated for a right total hip replacement in order to facilitate improved motion and mobilization, and to prevent the complications associated with a sedentary lifestyle. The patient was identified in the holding area by her armband. A long discussion was held with the patient regarding the risks, benefits and alternatives of the above named procedure. Risks include but are not limited to: pain, bleeding, infection, damage to surrounding structures (including nerves, blood vessels, skin, ligaments, tendons and bone), wound complications, failure of hardware/implants/reduction, need for further surgery, blood clots, myocardial infarction, pulmonary embolism , cerebrovascular insult, anaesthesia complications, compartment syndrome, limb loss, limp, loss of function, and . Benefits as mentioned above. Alternatives include no surgery. All questions were answered. The patient understood and agreed to the procedure. Informed consent was obtained, witnessed and verified. The patients correct operative limb - that is the right lower extremity - was marked, and the patient was taken to the operating room after being seen by the anesthesia and nursing staff. Procedure: The patient was brought into the operating room, placed on the OR table and secured with a safety strap. Consent and the operative site were again verified with the patient and nursing and anaesthesia staff. Anaesthesia, IV antibiotics, and TXA were then administered without complication. A time out was done, led by me the attending surgeon. The patient was gently turned into the left lateral decubitus position. An axillary roll was placed. A Stulberg hip positioner with well-padded bolsters was used to secure the patient in the lateral decubitus position. The down arm was placed on a well-padded arm board. The up arm was brought across the patients body and placed on 2 pillows. Foam egg crates were placed under the down knee and ankle, and bony prominences were well padded. The operative site was then prepped and draped in the standard sterile fashion. Time out was again done and the case began. Operation: A standard Direct Superior surgical approach was utilized to access the hip joint. With a #10 blade, a skin incision was taken from the posterior-superior corner of the greater trochanter in a posterior-superior direction. This was approximately 10cm in length. Electrocautery was utilized to carry the deep dissection down to the level of the gluteus denise fascia. Hemostasis was assured using electrocautery (bipolar and unipolar). The gluteus denise fascia was incised, and the fibers of gluteus denise were in line with the trajectory of the incision. This confirmed the accuracy of our planned incision based on palpated landmarks and surface anatomy. A Hansen elevator was used to split the distal fibers of gluteus denise, in line with the fibers, just proximal to their insertion into the iliotibial band. Great care was taken not to incise the iliotibial band. Gluteus denise fibers were split proximally using the Hansen elevator until reaching the apex of the wound. Again, hemostasis was assured. The ganesh-capsular fat pad was exposed utilizing curved handle bar retractors. The ganesh-capsular fat pad was excised off the inferior border of the gluteus medius muscle belly, exposing the insertion of the hip short external rotator muscle group. The piriformis tendon was identified and freed from adhesions to the capsule using a 90-degree clamp. This tendon was then released from its insertion using electrocautery. The tendon was tagged with a # 1 Ethibond suture and tied to the inferior aspect of the proximal wound apex. The tendon, thus, served as a sling to retract and protect the sciatic nerve. With the piriformis tendon reflected away from its insertion, the hip joint capsule was visualized. Electrocautery was used to perform a capsulotomy and synovial joint fluid was aspirated. Next, the superior leaflet of the capsule was elevated using a Hansen elevator to create separation from the underlying labrum and also to create a plane for later placement of a supra-acetabular retractor. The labrum was excised using electrocautery. The hip was then gently dislocated. A standard femoral neck cut was made using an oscillating saw. A 3/4 " osteotome was delivered into the femoral head using mallet strikes. The femoral head was then removed. Anterior, inferior, and supra-acetabular retractors were placed to expose the acetabulum. The pulvinar was excised using electrocautery. Odd sized reamers were used to prepare the acetabular bone bed. Healthy blushes of bleeding were observed from the reamed cancellous bone bed. Next, a size 50mm [place] Trident cup was impacted into position, achieving excellent press-fit. A size 36mm neutral polyethylene liner was then impacted into the cup. Excellent placement of the polyethylene liner, and excellent press fit of the cup were confirmed. Next, attention was turned to femoral preparation. The anterior and supra-acetabular retractors were removed. The cut femoral neck was then exposed using the inferior acetabular retractor around the calcar, and a straight 90-degree retractor to retract gluteus medius. The box-cutter osteotome was used with a mallet to removed bone from the lateral femoral neck. An opening reamer was delivered by hand to find the femoral canal. A lateralizing reamer was used with power to lateralize the proximal entry into the canal, so as to avoid placing the stem into varus. The femoral bone bed was then prepared using broaches with gentle mallet strikes. The tibia was used as a goniometer with which to dial in approximately 5 degrees of stem anteversion. Trial components were assembled and the hip was reduced. The hip was taken through a full range of motion and proved stable throughout this range of motion, including at the extremes of positions of compromised. All trial femoral components were removed. Another 1g of IV Ancef was administered so that the bone bed would be rich with antibiotic at the time of seating of the femoral implant. A [place] Accolade II (127-degree NSA, high offset) #3 stem was then implanted using gentle mallet strikes, diligently matching the prepared degree of stem anteversion. With the stem fully seated, a 36mm diameter , -5mm length ceramic/Biolox femoral head was then selected and implanted. The hip was once again reduced, and taken through a full range of motion. Stability was once again assured. Leg length was satisfactory. The wounds were copiously irrigated, as they had been regularly throughout the case so as to keep the retracted tissues wet, and in order to flush out wound debris. The capsule was primarily repaired using #1 Vicryl sutures in simple interrupted fashion. The tagged piriformis tendon was released and tied to the posterior-lateral corner of the greater trochanter. The remaining wounds were again irrigated. Hemostasis was assured and the wound was closed primarily using #1 Vicryl sutures. A 3-0 Biosyn suture was used to perform a subcuticular wound closure. A sterile, compressive dressing was applied. The sponge and needle counts were correct at the end of the case and the attending was present and scrubbed throughout the case. The patient was then transferred into a supine position and onto the hospital bed. A standard AP-pelvis x-ray was taken, demonstrating good overall alignment with a well reduced, congruent hip. There was no evidence of subsidence, loosening, or ganesh-prosthetic fracture. The patient was then was then transferred to the recovery room without incident/complications and in stable condition, having tolerated the procedure well. MD KARELY Hartman/[id number] MTDD
== END 2019-02-04 13:50 | disposition home or self-care (01) | DRG 470 ==
LOC: FM/S 05:54
PROVIDERS: ADMIT Orthopaedic Surgery Adult Reconstructive Orthopaedic Surgery; ATTEND Nurse Practitioner Acute Care
PROC: 0SR903Z Replacement of Right Hip Joint with Ceramic Synthetic Substitute, Open Approach (ICD-10-PCS; principal; 2019-02-02 09:04)
DX: M16.11 Unilateral primary osteoarthritis, right hip (principal); E78.5 Hyperlipidemia, unspecified; G43.909 Migraine, unspecified, not intractable, without status migrainosus; N32.81 Overactive bladder; Z87.891 Personal history of nicotine dependence
CPT/HCPCS: 36415; 73502-TC-RT-FY; 73560-TC-RT-FY; 80048; 83735; 85027; 88304-TC; 88311-TC; 94760; 97110-GP; 97116-GP; 97163-GP